=== PATIENT | male | born 1985 | race Caucasian/White ===

== ENCOUNTER 2019-09-26 20:54 | Emergency (ER) | payer OTHER ==
[2019-09-26] MEDS ORDERED: HYDROcod/ACETAM 5/325 MG TABLET PO STA (21:12)
--- NOTE | 2019-09-26 21:22 | ED Physician Documentation ---
PD HPI LOWER EXT INJURY - Stated complaint Stated Complaint: RT BIG TOE INJ - Chief complaint Chief Complaint: Ext Problem - History obtained from History obtained from: Patient - History of Present Illness PD HPI LOW EXT INJURY LOCATION: Right, Toe Type of injury: Blunt / blow Where injury occurred: Home - Additional information Additional information: Patient was at home today around 5:00 PM when he states a 15 to 20 pound jug of water fell down and struck his right big toe. He has no open wound. He has diffuse swelling and pain of the affected digit. Denies any foot or ankle injury. He states his tetanus is current. He has not take anything for pain at this time. He has no further complaints or concerns at this time. Review of Systems Constitutional: reports: Reviewed and negative Eyes: reports: Reviewed and negative Ears: reports: Reviewed and negative Nose: reports: Reviewed and negative Throat: reports: Reviewed and negative Cardiac: reports: Reviewed and negative Respiratory: reports: Reviewed and negative GI: reports: Reviewed and negative : reports: Reviewed and negative Skin: reports: Other (See HPI) Musculoskeletal: reports: Joint pain, Extremity swelling Neurologic: denies: Numbness PD PAST MEDICAL HISTORY - Past Medical History Past Medical History: No - Past Surgical History Past Surgical History: No - Present Medications Home Medications: Ambulatory Orders Medication Instructions Recorded Confirmed Cephalexin [Keflex] 500 mg PO Q8HR #21 capsule 09/26/19 - Allergies Allergies/Adverse Reactions: Allergies Allergy/AdvReac Type Severity Reaction Status Date / Time No Known Drug Allergies Allergy Verified 09/26/19 20:59 - Social History Does the pt smoke?: No Smoking Status: Never smoker Does the pt drink ETOH?: No Does the pt have substance abuse?: No - Immunizations Immunizations are current?: Yes - POLST Patient has POLST: No PD ED PE NORMAL - Vitals Vital signs reviewed: Yes - General General: Alert and oriented X 3, No acute distress, Well developed/nourished - HEENT HEENT: Atraumatic - Cardiac Cardiac: RRR, Other (+2 right-sided pedal pulses) - Respiratory Respiratory: No respiratory distress - Abdomen Abdomen: Normal bowel sounds - Derm Derm: Other (There is a 0.5 Superficial abrasionNear the nailbed of the great toe. No appreciated laceration.) - Extremities Extremities: No deformity, Other (Diffuse tenderness of the left hallux. Has pain with axial loading. He has full range of motion. No crepitus or joint laxity.) Results - Vitals Vitals: Vital Signs - 24 hr 09/26/19 20:59 Temperature 36.7 C Heart Rate 62 Respiratory 16 Rate Blood Pressure 128/76 O2 Saturation 96 Oxygen O2 Source Room air PD MEDICAL DECISION MAKING - ED course Complexity details: reviewed results, re-evaluated patient, considered differential, d/w patient, other (Will place patient on Keflex as he has an open wound on his toe. He agrees to continue wound care. He will keep his toe danny taped to the adjacent toe. Use Tylenol and ibuprofen as needed for comfort. Return here as needed for any worsening changes.) Departure - Departure Disposition: 01 Home, Self Care Clinical Impression: Abrasion, toe w/o infection, Fracture, toe Condition: Stable Instructions: ED Fx Toe Closed Prescriptions: Cephalexin [Keflex] 500 mg PO Q8HR #21 capsule Comments: Continue wound care at home. He is provided antibiotic as prescribed. Use Tylenol and ibuprofen as needed for comfort. You may place an [id number] topical antibiotic over your wound. Keep your toe taped to your adjacent toe for the next 1 to 2 weeks. Contact your primary care provider to schedule follow- up appointment. Please return emergency room as needed for any worsening changes.
--- NOTE | 2019-09-26 22:32 | XRAY Report ---
Reason: impact injury Procedure Date: 09/26/2019 Accession Number: [id number] / [id number] Procedure: XR - Toe(s) RT CPT Code: Final Report FULL RESULT: EXAM: RIGHT TOE RADIOGRAPHY EXAM DATE: 09/26/2019 09:50 PM. CLINICAL HISTORY: Impact injury. COMPARISON: None. TECHNIQUE: 3 views. FINDINGS: There is soft tissue edema along the distal aspect of the great toe. There is no evidence of acute fracture or dislocation. Mild degenerative changes are seen in the first metatarsal phalangeal joint. The bone mineralization is normal. IMPRESSION: No acute fracture or dislocation. Soft tissue swelling of the first toe. RADIA
[2019-09-26] MEDS ORDERED: cephALEXin 250 MG CAPSULE PO STA (22:34)
[2019-09-26 22:49] VITALS: BP 134/80
== END 2019-09-26 22:48 | disposition home or self-care (01) ==
LOC: ED 20:54
DX: S90.411A Abrasion, right great toe, initial encounter (principal); S92.401A Displaced unspecified fracture of right great toe, initial encounter for closed fracture; W20.8XXA Other cause of strike by thrown, projected or falling object, initial encounter; Y92.009 Unspecified place in unspecified non-institutional (private) residence as the place of occurrence of the external cause
CPT/HCPCS: 73660; 99283; A9270

== ENCOUNTER 2021-02-26 08:15 | Emergency (ER) | payer OTHER ==
[2021-02-26] MEDS ORDERED: KETOROLAC 60 MG/2 ML VIAL IM STA (08:42)
[2021-02-26] MEDS ORDERED: CHERRY SYRUP 10 ML UDC PO ONE (08:42)
[2021-02-26] MEDS ORDERED: DEXAMETHASONE 10 MG/ML VIAL PO STA (08:42)
--- NOTE | 2021-02-26 08:45 | ED Physician Documentation ---
History of Present Illness - Stated complaint Stated Complaint: LT FT PX/SWELLING - Chief complaint Chief Complaint: Ext Problem - History obtained from History obtained from: Patient - History of Present Illness Timing: Yesterday - Additonal information Additional information: Previously well 36-year-old male who has broken his left foot previously awoke yesterday morning with a stiff left great toe. Throughout the day pain seemed to get a bit worse and last night he was unable to sleep. This morning he is having a hard time walking. Last night even the bed sheets woke him up. He has not had this previously and he does have a family history of gout. Review of Systems Constitutional: denies: Fever Ears: denies: Ear pain Nose: denies: Congestion Throat: denies: Sore throat Respiratory: denies: Cough GI: denies: Abdominal Pain, Vomiting, Diarrhea Skin: denies: Rash Musculoskeletal: reports: Joint pain, Joint swelling, Pain with weight bearing PD PAST MEDICAL HISTORY - Past Medical History Past Medical History: No - Past Surgical History Past Surgical History: Yes Ortho: Other - Present Medications Home Medications: Ambulatory Orders Medication Instructions Recorded Confirmed HYDROcod/ACETAM 5/325 [Rowland 5/325] 1 - 2 tablet PO Q6H PRN #14 tablet 02/26/21 Indomethacin [Indocin] 25 - 50 mg PO Q8HR PRN #30 cap 02/26/21 - Allergies Allergies/Adverse Reactions: Allergies Allergy/AdvReac Type Severity Reaction Status Date / Time No Known Drug Allergies Allergy Verified 02/26/21 08:31 - Social History Does the pt smoke?: No Smoking Status: Never smoker Does the pt drink ETOH?: No Does the pt have substance abuse?: No - Immunizations Immunizations are current?: Yes - POLST Patient has POLST: No PD ED PE NORMAL - Vitals Vital signs reviewed: Yes (Hypertensive) - General General: Alert and oriented X 3, No acute distress, Well developed/nourished - HEENT HEENT: Atraumatic, PERRL - Respiratory Respiratory: No respiratory distress - Derm Derm: Normal color, Warm and dry, No rash - Extremities Extremities: No deformity, Other (There is swelling and point tenderness with erythema over the left metatarsophalangeal joint. There is exquisite pain to brushing up against the tip of the toe. There is no lymphangitic streaking or significant significant spread of erythema.) - Neuro Neuro: Alert and oriented X 3, direct mail coordinator 2-12 intact, No motor deficit, No sensory deficit, Normal speech Eye Opening: Spontaneous Motor: Obeys Commands Verbal: Oriented GCS Score: 15 - Psych Psych: Normal mood, Normal affect Results - Vitals Vitals: Vital Signs - 24 hr 02/26/21 08:19 Temperature 36.5 C Heart Rate 71 Respiratory 18 Rate Blood Pressure 145/85 H O2 Saturation 99 Oxygen O2 Source Room air - Rads (name of study) foot L Radiology: Prelim report reviewed (Impression: No acute osseous lesion.), EMP read indepedently, See rad report PD MEDICAL DECISION MAKING - ED course Complexity details: reviewed old records, reviewed results, re-evaluated patient, considered differential, d/w patient ED course: 36-year-old male with acute left great toe swelling and tenderness appears to have gout. He does not have a history of injury, he is afebrile has no lymphangitic streaking or significant spread of erythema. He does have point tenderness, erythema and exquisite tenderness to motion motion of the joint. History is consistent with gout. Examination is consistent with gout. Family history is consistent with gout. Patient is treated with IM Toradol and p.o. dexamethasone and we will place him on a course of indomethacin and provide a short course of narcotic pain reliever. Departure - Departure Disposition: 01 Home, Self Care Clinical Impression: Gout attack Qualifiers: Gout site: toe Gout etiology: unspecified cause Laterality: left Qualified Code(s): M10.9 - Gout, unspecified Condition: Stable Instructions: ED Arthritis Gout, ED Diet Gout Follow-Up: [facility] [Provider Group] Prescriptions: Indomethacin [Indocin] 25 - 50 mg PO Q8HR PRN #30 cap PRN Reason: Pain HYDROcod/ACETAM 5/325 [Rowland 5/325] 1 - 2 tablet PO Q6H PRN #14 tablet PRN Reason: Pain
--- NOTE | 2021-02-26 08:56 | XRAY Report ---
PROCEDURE: Foot 3 View LT INDICATIONS: left foot pain, swelling, redness TECHNIQUE: 3 views of the foot were acquired. COMPARISON: None FINDINGS: Bones: Status post ORIF of fifth metatarsal fracture. Dorsal calcaneal bone spur. No acute fractures or dislocations. No suspicious bony lesions. No osseous erosive changes or periosteal reaction. Soft tissues: No tibiotalar joint effusion. Achilles tendon appears normal. No soft tissue gas. IMPRESSION: No acute osseous lesion. If there persistent symptoms or continued clinical concern for pathology, th en repeat plain film radiographs (7-10 days) or advanced imaging (CT, MR, bone scan) should be consid ered for further evaluation. Reviewed by: Iona Malave MD, PhD on 02/26/2021 8:55 AM PDT Approved by: Iona Malave MD, PhD on 02/26/2021 8:55 AM PDT Station ID: [id number]
[2021-02-26 09:17] VITALS: BP 140/80
== END 2021-02-26 09:15 | disposition home or self-care (01) ==
LOC: ED 08:15
DX: M10.9 Gout, unspecified (principal)
CPT/HCPCS: 73630; 96372; 99283; A9270

== ENCOUNTER 2021-04-15 08:00 | Outpatient (CLI) | payer OTHER | END 2021-04-15 23:59 | disposition home or self-care (01) | LOC: LAB.N 08:00 | PROVIDERS: ATTEND Physician Assistant Medical | DX: R05.9 Cough, unspecified (principal); Z20.822 Contact with and (suspected) exposure to COVID-19 ==

== ENCOUNTER 2021-04-15 11:50 | Outpatient (CLI) | payer OTHER ==
--- NOTE | 2021-04-15 14:10 | XRAY Report ---
PROCEDURE: Chest 2 View X-Ray INDICATIONS: COUGH TECHNIQUE: 2 view(s) of the chest. COMPARISON: None. FINDINGS: Surgical changes and devices: None. Lungs and pleura: No pleural effusions or pneumothorax. Lungs are clear. Mediastinum: Mediastinal contours are normal. Heart size is normal. Bones and chest wall: No suspicious bony abnormalities. Soft tissues appear unremarkable. IMPRESSION: No evidence acute pulmonary process. Reviewed by: Rich Kaur MD on 04/15/2021 2:09 PM PDT Approved by: Rich Kaur MD on 04/15/2021 2:09 PM PDT Station ID: [id number]
== END 2021-04-15 23:59 ==
LOC: DI.N 11:50
PROVIDERS: ATTEND Physician Assistant Medical
DX: R05.9 Cough, unspecified (principal)